=== PATIENT | female | born 1935 | race Caucasian/White ===

== ENCOUNTER → 2016-08-16 | Day surgery (SDC) | payer MEDICARE, OTHER ==
[~2016-08-16] VITALS: Ht 160 cm; Wt 49.4 kg
[~2016-08-16] MED LIST: ALPHAGAN P OP SO5 ML OP; BETIMOL5 ML OP; CLOBETASOL EMO100 GM TP; COLACE 100MG C100 MG PO; FORTAMET500 MG PO; FOSAMAX70 MG PO; GLIPIZIDE XL2.5 MG PO; LUMIGAN 0.01%2.5 ML OP; MINOCYCLINE HC100 M1 PO; MOBIC7.5 MG PO; NEURONTIN 100100 MG PO; NORCO 10-325 T1 EACH PO; NORCO 5-325 TA1 EACH PO; PRINIVIL20 MG PO; SIMVASTATIN40 MG PO; TRAMADOL HCL50 MG PO
[2016-08-16 11:07] LABS: HEMOGLOBIN 12.5 gm/dl (12.3-15.3); RED BLOOD COUNT 4.22 M/UL (4.00-5.10)
== END | disposition home or self-care (01) ==
LOC: OR 10:20
PROVIDERS: Orthopaedic Surgery
PROC: 0PSJ04Z Reposition Left Radius with Internal Fixation Device, Open Approach (ICD-10-PCS; principal; 2016-08-16 17:30)
DX: S52.572A Other intraarticular fracture of lower end of left radius, initial encounter for closed fracture (principal); I10 Essential (primary) hypertension; E11.9 Type 2 diabetes mellitus without complications; M19.90 Unspecified osteoarthritis, unspecified site; M81.0 Age-related osteoporosis without current pathological fracture; Z87.440 Personal history of urinary (tract) infections; Z82.49 Family history of ischemic heart disease and other diseases of the circulatory system; Z83.3 Family history of diabetes mellitus; Z79.891 Long term (current) use of opiate analgesic; Z79.899 Other long term (current) drug therapy; Z98.890 Other specified postprocedural states
CPT/HCPCS: 36415; 73110; 76000; 80048; 82962; 85025; 93005; C1713; J2795; J7030; J7120